=== PATIENT | female | born 1985 | race Caucasian/White ===

== ENCOUNTER 2018-03-17 19:27 | Observation (INO) | payer MEDICAID ==
[~2018-03-17] VITALS: Ht 147.3 cm; Wt 58.1 kg
[2018-03-17] MEDS ORDERED: LACTATED RINGERS 1,000 ML IV SCH (20:30)
[2018-03-17] MEDS ORDERED: MAGNESIUM/ALUMINUM HYDROXIDE/SIMETHICONE 30ML UDC PO NR (20:30)
[2018-03-17] MEDS ORDERED: MVI, ADULT NO.1 10 ML in SODIUM CHLORIDE 0.9% 1,000 ML IV SCH ×2 (21:00)
== END 2018-03-17 23:00 | disposition home or self-care (01) ==
LOC: L&D 19:27
PROVIDERS: ADMIT Specialist; ATTEND Specialist
DX: O26.893 Other specified pregnancy related conditions, third trimester (principal); R10.10 Upper abdominal pain, unspecified; Z3A.31 31 weeks gestation of pregnancy
CPT/HCPCS: 76705; 76805; 76818; 96365; 99281; G0378; J3490; J7030; J7120; 96360